=== PATIENT | female | born 1960 | race Caucasian/White ===

== ENCOUNTER 2023-11-24 18:58 | Emergency (ER) | payer MEDICAID ==
[~2023-11-24] VITALS: Ht 172.7 cm; Wt 64.4 kg
[2023-11-24 19:18] VITALS: BP_SYST 136; PULSE 67; RESP 18; TEMP 98.2; O2SAT 100
[2023-11-24 19:30] VITALS: BP_SYST 136; PULSE 67; RESP 18; TEMP 98.2; O2SAT 100
== END 2023-11-24 19:30 | disposition home or self-care (01) ==
LOC: SED 18:58
DX: H60.92 Unspecified otitis externa, left ear (principal); H92.02 Otalgia, left ear; Z79.899 Other long term (current) drug therapy
CPT/HCPCS: 99283